=== PATIENT | female | born 1975 | race Hispanic/Latino ===

== ENCOUNTER 2018-04-23 17:50 | Emergency (ER) | payer OTHER, SELFPAY ==
[2018-04-23 17:57] VITALS: BP 137/97; PULSE 107; RESP 18; TEMP 37.1; O2SAT 98
--- NOTE | 2018-04-23 18:05 | ED_ITS ---
HPI - Female Genitourinary <Dana Bravo PA-C - Last Filed: 04/23/18 22:21> General Chief complaint: Urogenital-Female Stated complaint: PRIVATE, DOESNT WANT TO SAY Time Seen by Provider: 04/23/18 18:00 Source: patient Mode of arrival: ambulatory Limitations: no limitations History of Present Illness HPI Narrative: This generally healthy 42-year-old female is concerned about possible chlamydia exposure from a female partner via oral sex or use of sex toys though she states they were jainism about cleaning these. She states that she was last with this partner 9 days ago, and a few days ago she reported that she tested positive for gonorrhea. She states that she has had some slight chills and sweats during the day for the last 24 hr. She states that she has had fever up to 100 at home. She has had night sweats with no fever for 3 days. She has had feeling of swollen neck glands and somewhat sore throat with patchy, funny looking redness and canker sores for 3 days. She states swollen glands are more noticeable on the right. She describes a little bit of mild headache or sinus pressure, nothing like her previous migraines. No earache. No cough, and does not feel like she has a upper respiratory infection or ?typical? sore throat. She denies any recent travel. She denies any specific exposures aside from this. She states that she does not have any new vaginal discharge, maybe a little bit thicker for the last couple of days but not unusual for her in mid cycle. She denies any odor, itching, urinary symptoms, new pelvic or abdominal pain. She states that she has had BV before, not concerned about this or trich from this partner. She is most concerned about GC testing. She is otherwise monogamous with her . She states that she thinks she could have a virus as well but is really concerned about this exposure. Related Data Allergies Allergy/AdvReac Type Severity Reaction Status Date / Time carbamazepine [From TEGRETOL] Allergy Severe ERIN Unverified 02/27/18 12:36 MELLO'S SYNDROME Review of Systems <Dana Bravo PA-C - Last Filed: 04/23/18 22:21> Review of Systems All systems reviewed & are unremarkable except as noted in HPI and below Exam <Dana Bravo PA-C - Last Filed: 04/23/18 22:21> Narrative Exam Narrative: GENERAL APPEARANCE: Patient sitting comfortably, in no distress. HEAD: No sinus TTP. EYES: PERRL, EOMI. EARS: Normal auditory canals, TMS intact with normal light reflexes. ORAL CAVITY: Normal oropharynx. THROAT: Moderate patchy erythema without any exudate, no vesicles or lesions NECK/THYROID: Neck supple, full range of motion, few small anterior cervical nodes, no posterior or submandibular nodes LUNGS: Clear to auscultation bilaterally, clear to percussion, no cough on exam. HEART: RRR without murmur, nl S1, S2, no S3 or S4. ABDOMEN: Soft, nontender, nondistended EXTREMITIES: No cyanosis or edema Initial Vital Signs Initial Vital Signs: Vital Signs Temperature 98.8 F 04/23/18 17:57 Pulse Rate 107 H 04/23/18 17:57 Respiratory Rate 18 04/23/18 17:57 Blood Pressure 137/97 H 04/23/18 17:57 Pulse Oximetry 98 04/23/18 17:57 <Angel Swanson DO - Last Filed: 04/24/18 02:34> Initial Vital Signs Initial Vital Signs: Vital Signs Temperature 98.8 F 04/23/18 17:57 Pulse Rate 107 H 04/23/18 17:57 Respiratory Rate 18 04/23/18 17:57 Blood Pressure 137/97 H 04/23/18 17:57 Pulse Oximetry 98 04/23/18 17:57 Course <Dana Bravo PA-C - Last Filed: 04/23/18 22:21> Hospital Course: Patient's urine study for gonorrhea/chlamydia and rapid strep were negative. A throat culture including gonorrhea were ordered. Patient's partner did not test positive for Chlamydia. She felt more comfortable being treated for gonorrhea exposure versus waiting for additional test results so was given an injection of ceftriaxone this evening and our plan is to call her if any positive findings on the culture from lab. Orders Ordered: ED Orders 04/23/18 18:30 Urinalysis Sreen (Dip Only) Stat Urine Chlamydia Gonorrhea PCR Stat 04/23/18 19:53 GC Screen Stat Strep Grp A by PCR Rapid Stat Throat Culture Stat Discontinued Medications Ceftriaxone Sodium (Rocephin) 250 mg IM NOW ONE Stop: 04/23/18 21:03 Last Admin: 04/23/18 21:16 Dose: 250 mg Vital Signs - 8 hr 04/23/18 20:53 Pulse Rate 102 H Blood Pressure [Right Arm] 126/79 H Pulse Oximetry 99 <Angel Swanson DO - Last Filed: 04/24/18 02:34> Orders Ordered: ED Orders 04/23/18 18:30 Urinalysis Sreen (Dip Only) Stat Urine Chlamydia Gonorrhea PCR Stat 04/23/18 19:53 GC Screen Stat Strep Grp A by PCR Rapid Stat Throat Culture Stat Discontinued Medications Ceftriaxone Sodium (Rocephin) 250 mg IM NOW ONE Stop: 04/23/18 21:03 Last Admin: 04/23/18 21:16 Dose: 250 mg Vital Signs - 8 hr 04/23/18 20:53 Pulse Rate 102 H Blood Pressure [Right Arm] 126/79 H Pulse Oximetry 99 MDM - Female Genitourinary <Dana Bravo PA-C - Last Filed: 04/23/18 22:21> Lab Data Lab Results 04/23/18 04/23/18 04/23/18 Range/Units 18:30 18:30 19:53 Urine Color Yellow Urine Appearance Clear Urine pH 5.5 (4.5-8.0) Ur Specific [place] 1.025 (1.000-1.035) Urine Protein Negative (Negative) Urine Glucose (UA) Negative (Normal) g/dL Urine Ketones Negative (NEGATIVE) Urine Occult Blood Trace-intact (Negative) Urine Nitrate Negative (Negative) Urine Bilirubin Negative (NEGATIVE) Urine Urobilinogen 0.2 (0.2) E.U./dL Ur Leukocyte Esterase Negative (NEGATIVE) Ur Chlamydia DNA (PCR) Not detected Group A Strep (PCR) Negative N gonorrhoeae DNA (PCR) Not detected <Angel Swanson DO - Last Filed: 04/24/18 02:34> Lab Data Lab Results 04/23/18 04/23/18 04/23/18 Range/Units 18:30 18:30 19:53 Urine Color Yellow Urine Appearance Clear Urine pH 5.5 (4.5-8.0) Ur Specific [place] 1.025 (1.000-1.035) Urine Protein Negative (Negative) Urine Glucose (UA) Negative (Normal) g/dL Urine Ketones Negative (NEGATIVE) Urine Occult Blood Trace-intact (Negative) Urine Nitrate Negative (Negative) Urine Bilirubin Negative (NEGATIVE) Urine Urobilinogen 0.2 (0.2) E.U./dL Ur Leukocyte Esterase Negative (NEGATIVE) Ur Chlamydia DNA (PCR) Not detected Group A Strep (PCR) Negative N gonorrhoeae DNA (PCR) Not detected Discharge Plan Departure Patient Disposition: Home, Self-Care Clinical Impression: Exposure to gonorrhea Discharge Date/Time: 04/23/18 21:47 Interventions: ED Discharge Assessment Last Done: 04/23/18 21:46 Instructions: DI for Gonorrhea Activity Restrictions/Additional Instructions: Your urine gonorrhea and chlamydia test were negative today however we have treated you for gonorrhea based on your known exposure. Your throat culture is pending and we will call you if any positive results or treatment plans need to be changed. Your throat on exam today did not look at all typical for a gonorrheal infection. Your strep test was negative as well. Please return if you have any acutely worsening symptoms, and you should also follow up with your PCP if you continue to notice night sweats, swollen glands, or other new symptoms. <Angel Swanson, DO - Last Filed: 04/24/18 02:34> Cosign ED Attending Erma Attestation: I was immediately available in the department for consultation. Documentation has been reviewed. I agree with assessment and plan.
[2018-04-23 19:18] LABS: Appearance Urine UA CLEAR; Bilirubin Urine UA NEGATIVE (NEGATIVE); Color Urine UA YELLOW; Glucose Urine UA NEGATIVE (Normal); Ketones Urine UA NEGATIVE (NEGATIVE); Leukocyte Esterase Urine UA NEGATIVE (NEGATIVE); Nitrite Urine UA Negative (Negative); Occult Blood Urine UA TRACE-INTACT (Negative); Protein Urine UA NEGATIVE (Negative); Specific Gravity Urine UA 1.025 (1.000-1.035); Urobilinogen Urine UA 0.2 E.U./dL (0.2); pH Urine UA 5.5 (4.5-8.0)
--- NOTE | 2018-04-23 19:36 | PC.NURSE ---
pt c/o throat pain. denies genitourinary concerns
[2018-04-23 20:35] LABS: Strep Grp A by PCR Rapid Negative
[2018-04-23 20:40] LABS: Urine N gonorrhoeae NOT DETECTED
[2018-04-23 20:43] LABS: Urine Chlamydia NOT DETECTED
[2018-04-23 20:53] VITALS: BP 126/79; PULSE 102; O2SAT 99
[2018-04-23] MEDS: cefTRIAXone 500 MG VIAL 250 MG IM (21:16)
== END 2018-04-23 21:47 | disposition home or self-care (01) ==
PROVIDERS: Emergency Provider Internal Medicine
DX: Z20.2 Contact with and (suspected) exposure to infections with a predominantly sexual mode of transmission (principal)
CPT/HCPCS: 81003; 87070; 87081; 87491; 87591; 87651; 96372; 99282; 99283; J0696

== ENCOUNTER 2019-04-06 16:48 | Emergency (ER) | payer OTHER, SELFPAY ==
[2019-04-06 17:05] VITALS: BMI 25.4
[2019-04-06 17:41] VITALS: BP 119/75; PULSE 76; RESP 16; TEMP 36.8; O2SAT 100
--- NOTE | 2019-04-06 17:42 | DI.US.S_ITS ---
PROCEDURE: US PELVIC COMPLETE INDICATIONS: RLQ PAIN TECHNIQUE: Real-time scanning was performed of the pelvic organs, with image documentation. Additional endovaginal scanning was necessary due to incomplete visualization of the adnexal and endometrial structures by transabdominal scanning. COMPARISON: None. FINDINGS: Transabdominal scanning: Limited scanning through the kidneys shows no hydronephrosis. No pathologic free abdominal or pelvic fluid. The appendix is not identified and cannot be evaluated. Endovaginal scanning: Uterus: Uterus is normal in size at 9.8 x 3.3 x 4.4 cm. The endometrium measures 3.6 mm in combined thickness. There is a 1.7 x 1.7 cm anterior intramural fibroid. Ovaries: Right adnexa measures 2.8 x 1.5 x 1.1 cm. Right adnexa sonographically normal. Left adnexa measures 3.2 x 1.7 x 1.6 cm. There is a 1 cm optional follicle in the left adnexa. IMPRESSION: 1. Small uterine fibroid. 2. Small left adnexal cyst. 3. Right adnexa sonographically normal. Dictated by: Harleen Adamson MD, PhD on 04/06/2019 at 19:02 Approved by: Harleen Adamson MD, PhD on 04/06/2019 at 19:04
[2019-04-06 17:46] LABS: Add Manual Diff / Slide Review NO; Basophils Absolute Auto 100 /uL (0-100); Basophils Percent Auto 1.1 % (0-2); Eosinophils Absolute Auto 200 /uL (0-450); Eosinophils Percent Auto 4.9 % (2-4); Hematocrit 41.1 % (36-46); Hemoglobin 13.8 g/dL (12.0-16.0); Lymphocytes Absolute Auto 2400 /uL (1100-4500); Mean Corpuscular HGB Conc 33.5 % (30-36); Mean Corpuscular Hemoglobin 30.7 PG (26-34); Mean Corpuscular Volume 91.4 fL (80-100); Monocytes Absolute Auto 400 /uL (0-900); Monocytes Percent Auto 7.9 % (3-14); Neutrophils Absolute Auto 1700 /uL (1500-7000); Neutrophils Percent Auto 36.1 % (50-75); Platelet Count 237 X10^3/uL (150-400); Red Cell Distribution Width 13.1 % (11.6-14.8); White Blood Cell Count 4.8 X10^3/uL (4.5-11.0)
--- NOTE | 2019-04-06 17:54 | PC.NURSE ---
Patient complains of lower right abdominal sharp pain with bloating for the last three days that started to radiate towards the back today. Pt does not have a period d/t daily control, however, some spotting occurs at times, but she reports it lasting longer this time. Pt reports some nausea, worsens when walking or moving and better with heat, has had a BM this morning with some relief to the pain. Pt has hx of UTI's PID when she was 20 three c-sections, allergies to Tegretol and morphine. Pt is resting in room.
[2019-04-06 17:56] LABS: Alanine Aminotransferase 29 IU/L (9-52); Albumin 4.5 g/dL (3.5-5.0); Albumin Globulin Ratio 1.3 (1.0-2.8); Alkaline Phosphatase 55 U/L (38-126); Amylase 96 U/L (30-110); Aspartate Aminotransferase 29 IU/L (14-36); BUN Creatinine Ratio 21.4 (6-22); Bilirubin Total 0.3 mg/dL (0.2-1.3); Blood Urea Nitrogen 15 mg/dL (7-17); Carbon Dioxide 24 mmol/L (22-32); Chloride 105 mmol/L (98-107); Estimated Glomerular Filt Rate > 60.0 mL/min (>60); Globulin 3.5 g/dL (1.7-4.1); Glucose 87 mg/dL (70-100); HEMOLYSIS < 15 (0-50); Lipase 487 U/L (23-300); Potassium 3.9 mmol/L (3.4-5.1); Sodium 138 mmol/L (137-145)
--- NOTE | 2019-04-06 19:03 | DI.CT.S_ITS ---
PROCEDURE: CT ABDOMEN PELVIS W CON INDICATIONS: rlq pain, elevated lipase TECHNIQUE: After the administration of intravenous contrast, 5 mm thick sections acquired from the diaphragm to the symphysis. 5 mm coronal and sagittal reformats were acquired. For radiation dose reduction, the following was used: automated exposure control, adjustment of mA and/or kV according to patient size. COMPARISON: None. FINDINGS: Image quality: Excellent. ABDOMEN: Lung bases: Lung bases are clear. Heart size is normal. Bilateral breast implants partially visualized. Solid organs: Liver is normal in size and enhancement. Gallbladder is contracted. Biliary system is non dilated. Pancreas enhances normally. Spleen is normal in size and enhancement. No adrenal nodules. Kidneys demonstrate normal size and enhancement, without hydronephrosis. Peritoneum and bowel: Bowel loops demonstrate normal wall thickness and caliber. No free fluid or air. The appendix is normal. Nodes and vessels: No retroperitoneal or mesenteric adenopathy by size criteria. Aorta and inferior vena cava are normal in size. Miscellaneous: No ventral hernias. PELVIS: Genitourinary: Bladder wall thickness is normal. Miscellaneous: No inguinal hernias or adenopathy. Bones: No suspicious bony lesions. No vertebral body compression fractures. IMPRESSION: 1. No evidence of appendicitis. 2. No free fluid or free air. 3. No dilated loops of bowel. Dictated by: Harleen Adamson MD, PhD on 04/06/2019 at 19:42 Approved by: Harleen Adamson MD, PhD on 04/06/2019 at 19:47
[2019-04-06 19:48] VITALS: BP 118/71; PULSE 80; RESP 17; O2SAT 100
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
[2019-04-06] MEDS: KETOROLAC 60 MG/2 ML VIAL 30 MG IV (20:45)
[2019-04-06 20:57] VITALS: BP 127/80; PULSE 72; RESP 18; O2SAT 100
== END 2019-04-06 21:26 | disposition home or self-care (01) ==
PROVIDERS: Emergency Provider Nurse Practitioner Family
DX: D25.1 Intramural leiomyoma of uterus (principal); R10.31 Right lower quadrant pain
CPT/HCPCS: 36591; 74177; 76830; 76856; 80053; 81003; 81025; 82150; 83690; 85025; 96374; 99283; 99284; J1885; Q9967

== ENCOUNTER 2020-12-14 13:26 | Emergency (ER) | payer OTHER, SELFPAY ==
[2020-12-14] VITALS (7 sets, daily range): BP systolic 106–123; BP diastolic 66–78; PULSE 75–94; RESP 18; TEMP 36.9; O2SAT 96–100; BMI 29.2
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
[2020-12-14 13:59] LABS: Bacteria Urine None Seen
--- NOTE | 2020-12-14 14:10 | DI.US.S_ITS ---
PROCEDURE: US PELVIC COMPLETE INDICATIONS: RIGHT PELVIC PAIN. HISTORY OF CYSTS. TECHNIQUE: Real-time scanning was performed of the pelvic organs, with image documentation. Additional endovaginal scanning was necessary due to incomplete visualization of the adnexal and endometrial structures by transabdominal scanning. COMPARISON: [facility], US, US PELVIC COMPLETE, 04/06/2019, 18:00. FINDINGS: Uterus: Uterus is at the upper limits of normal for size at 10.1 x 4 x 3.8 cm. The endometrium measures 6 mm in combined thickness. Incidental note is made of nabothian cysts. Ovaries: The right ovary measures 3.3 x 2.2 x 1.9 cm. The left ovary measures 2.6 x 1.6 x 1.6 cm, and demonstrates a complex cyst with increased vascularity that measures up to 2 cm. The ovaries otherwise have a normal sonographic appearance. No adnexal masses are seen. Other: No pathologic free abdominal or pelvic fluid. IMPRESSION: Complex cyst of the left ovary that measures up to 2 cm, which most likely represents a hemorrhagic cyst. At clinical discretion, a followup pelvic ultrasound could be considered in 6 weeks to assure resolution/ improvement. Dictated by: Elvis Martins M.D. on 12/14/2020 at 14:08 Approved by: Elvis Martins M.D. on 12/14/2020 at 14:09
[2020-12-14 14:11] LABS: Culture Indicated Urine Cult Not Indicated; RBC Urine 1-5/HPF (0-5/HPF); Squamous Epithelial Cell Urine 1-5 /HPF (0-5/HPF); WBC Urine 0-1/HPF (0-5/HPF)
--- NOTE | 2020-12-14 14:11 | DI.CT.S_ITS ---
PROCEDURE: CT ABDOMEN PELVIS W CON INDICATIONS: rlq pain TECHNIQUE: After the administration of intravenous contrast, 5 mm thick sections acquired from the diaphragm to the symphysis. 5 mm coronal and sagittal reformats were acquired. For radiation dose reduction, the following was used: automated exposure control, adjustment of mA and/or kV according to patient size. COMPARISON: [facility], , US PELVIC COMPLETE, 12/14/2020, 14:32. [facility], US, US PELVIC COMPLETE, 04/06/2019, 18:00. [facility], CT, CT ABDOMEN PELVIS W CON, 04/06/2019, 19:12. FINDINGS: Image quality: Excellent. ABDOMEN: Lung bases: Lung bases are clear. Heart size is normal. Solid organs: Liver is normal in size and enhancement. Gallbladder is normal. Biliary system is non dilated. Pancreas enhances normally. Spleen is normal in size and enhancement. No adrenal nodules. Kidneys demonstrate normal size and enhancement, without hydronephrosis. There is a 9 mm low-density nodule in the left kidney, most likely a renal cyst. Peritoneum and bowel: Appendix is normal in caliber measuring 6 mm in diameter. Bowel loops demonstrate normal wall thickness and caliber. No free fluid or air. Nodes and vessels: There are prominent mesenteric lymph nodes in the right lower quadrant, measuring up to 7 mm. No retroperitoneal or mesenteric adenopathy by size criteria. Aorta and inferior vena cava are normal in size. Miscellaneous: No ventral hernias. PELVIS: Genitourinary: Bladder wall thickness is normal. There is a 1.5 cm right ovarian cyst with peripheral enhancement, most likely a corpus luteum. Left ovary is not well seen. Uterus is unremarkable. No pathological free-fluid in pelvis. Miscellaneous: No inguinal hernias or adenopathy. Bones: No suspicious bony lesions. No vertebral body compression fractures. IMPRESSION: 1. Normal appendix. 2. Mildly prominent mesenteric lymph node in the right lower quadrant, consistent with nonspecific mesenteric adenitis. 3. A 1.5 cm cyst in the right ovary, most likely a corpus luteum. Left ovary is not well seen. No pathological free-fluid in pelvis. Dictated by: Shad Schmidt M.D. on 12/14/2020 at 15:42 Approved by: Shad Schmidt M.D. on 12/14/2020 at 16:03
[2020-12-14] MEDS: KETOROLAC 60 MG/2 ML VIAL 30 MG IV (14:29)
[2020-12-14 14:46] LABS: Add Manual Diff / Slide Review NO; Basophils Absolute Auto 100 /uL (0-100); Basophils Percent Auto 1.2 % (0-2); Eosinophils Absolute Auto 200 /uL (0-450); Eosinophils Percent Auto 3.1 % (2-4); Hematocrit 40.7 % (36-46); Hemoglobin 13.7 g/dL (12.0-16.0); Lymphocytes Absolute Auto 1800 /uL (1100-4500); Lymphocytes Percent Auto 33.9 % (25-40); Mean Corpuscular HGB Conc 33.6 % (30-36); Mean Corpuscular Hemoglobin 29.8 PG (26-34); Mean Corpuscular Volume 88.8 fL (80-100); Monocytes Absolute Auto 300 /uL (0-900); Monocytes Percent Auto 6.2 % (3-14); Neutrophils Absolute Auto 2900 /uL (1500-7000); Neutrophils Percent Auto 55.6 % (50-75); Platelet Count 222 X10^3/uL (150-400); Red Blood Cell Count 4.59 X10^6/uL (4.0-5.2); Red Cell Distribution Width 12.7 % (11.6-14.8); White Blood Cell Count 5.2 X10^3/uL (4.5-11.0)
[2020-12-14 15:03] LABS: Alanine Aminotransferase 24 IU/L (<35); Albumin 4.3 g/dL (3.5-5.0); Albumin Globulin Ratio 1.3 (1.0-2.8); Alkaline Phosphatase 52 U/L (38-126); Aspartate Aminotransferase 29 IU/L (14-36); BUN Creatinine Ratio 19.4 (6-22); Bilirubin Total 0.5 mg/dL (0.2-1.3); Blood Urea Nitrogen 14 mg/dL (7-17); Calcium 9.1 mg/dL (8.4-10.2); Carbon Dioxide 28 mmol/L (22-32); Chloride 101 mmol/L (98-107); Estimated Glomerular Filt Rate > 60.0 mL/min (>60); Globulin 3.3 g/dL (1.7-4.1); Glucose 98 mg/dL (70-100); HEMOLYSIS < 15 (0-50); Lipase 250 U/L (23-300); Potassium 3.8 mmol/L (3.4-5.1); Sodium 135 mmol/L (137-145); Total Protein 7.6 g/dL (6.3-8.2)
[2020-12-14] MEDS: HYDROMORPHONE 0.5 MG INJ IV (15:30)
== END 2020-12-14 16:53 | disposition home or self-care (01) ==
PROVIDERS: Emergency Provider Emergency Medicine
DX: N83.201 Unspecified ovarian cyst, right side (principal); R10.2 Pelvic and perineal pain; Z87.42 Personal history of other diseases of the female genital tract
CPT/HCPCS: 36415; 74177; 76830; 76856; 80053; 81003; 81015; 81025; 83690; 85025; 87070; 87077; 87147; 87205; 87210; 87491; 87563; 87591; 96374; 96375; 99284; J1170; J1885; Q9967

== ENCOUNTER → 2020-12-21 12:12 | Outpatient (CLI) | payer OTHER, SELFPAY | PROVIDERS: PCP Registered Nurse; Visit Provider Obstetrics & Gynecology | DX: N76.0 Acute vaginitis (principal); Z86.19 Personal history of other infectious and parasitic diseases | CPT/HCPCS: 87070; 87205 ==

== ENCOUNTER → 2021-05-03 15:27 | Outpatient (CLI) | payer OTHER, SELFPAY | PROVIDERS: PCP Registered Nurse; Visit Provider Obstetrics & Gynecology | DX: R31.9 Hematuria, unspecified (principal); R39.9 Unspecified symptoms and signs involving the genitourinary system | CPT/HCPCS: 87086 ==

== ENCOUNTER → 2021-05-04 14:25 | Outpatient (CLI) | payer OTHER, SELFPAY ==
--- NOTE | 2021-05-04 14:26 | DI.US.S_ITS ---
PROCEDURE: US PELVIC COMPLETE INDICATIONS: PELVIC PAIN AND PAIN AT VAGINAL CUFF. POSTHYSTERECTOMY. TECHNIQUE: Real-time scanning was performed of the pelvic organs, with image documentation. Additional endovaginal scanning was necessary due to incomplete visualization of the adnexal and endometrial structures by transabdominal scanning. COMPARISON: [facility], PELVIC COMPLETE, 12/14/2020, 14:32. [facility], PELVIC COMPLETE, 04/06/2019, 18:00. FINDINGS: Uterus: Uterus is surgically absent Ovaries: Ovaries could not be located. The may be surgically absent. Other: No pathologic free abdominal or pelvic fluid. IMPRESSION: Nonvisualization of the ovaries bilaterally, possibly due to prior oophorectomy. Prior hysterectomy has been performed according to the patient. Depending on the clinical status follow-up by pelvic MRI may be warranted for further assessment. Prior surgical history would be valuable to determine whether oophorectomy has been performed. Dictated by: Itz De La Torre M.D. on 05/04/2021 at 15:21 Approved by: Itz De La Torre M.D. on 05/04/2021 at 15:22
== END ==
PROVIDERS: PCP Registered Nurse; Referring Provider Obstetrics & Gynecology; Visit Provider Obstetrics & Gynecology
DX: R10.2 Pelvic and perineal pain (principal); R10.31 Right lower quadrant pain; Z90.710 Acquired absence of both cervix and uterus
CPT/HCPCS: 76830; 76856

== ENCOUNTER → 2021-05-18 14:00 | Outpatient (CLI) | payer OTHER, SELFPAY ==
--- NOTE | 2021-05-18 14:02 | DI.MRI.S_ITS ---
PROCEDURE: MR PELVIS WO/W CON INDICATIONS: pelvic pain TECHNIQUE: Coronal HASTE, sagittal breath-hold T2 FSE; axial T1 FSE with and without fat saturation through the pelvis. Optional long- and short-axis uterine nonbreath-hold T2 FSE through the uterus. Sagittal or axial dynamic VIBE during administration of contrast. Post-contrast axial or coronal VIBE/2-D FLASH with fat saturation from the iliac crests to the symphysis. Optional diffusion weighted imaging and ADC may be performed. COMPARISON: [facility], US, US PELVIC COMPLETE, 05/04/2021, 14:44. [facility], CT, CT ABDOMEN PELVIS W CON, 12/14/2020, 15:16. [facility], US, US PELVIC COMPLETE, 12/14/2020, 14:32. [facility], CT, CT ABDOMEN PELVIS W CON, 04/06/2019, 19:12. FINDINGS: Image quality: Excellent. Uterus: Apparent prior hysterectomy. The uterus appeared present at the midline, anteverted, 12/14/20. Adnexa: Both ovaries are normal in size, without suspicious cystic or solid lesions. No cystic or solid adnexal mass is found. Urinary system: Bladder wall is normal in thickness. Distal ureters are non distended. Urethra appears normal in morphology. Nodes and vessels: No pelvic or inguinal adenopathy by size criteria. Iliac vessels are normal in size. Bowel and peritoneum: No pathologic free pelvic fluid. Inferior colon and small bowel loops are normal in caliber. Soft tissues: No inguinal hernias. No findings of pelvic floor incompetence in the absence of provocation. Bones: Marrow demonstrates normal overall signal. IMPRESSION: A source of persistent pelvic pain is not found. No adnexal cystic or solid mass seen. There appears to have been prior hysterectomy. No operative complication is found. No adenopathy is seen and no acute bone or soft tissue lesion is identified. Dictated by: Itz De La Torre M.D. on 05/18/2021 at 16:39 Approved by: Itz De La Torre M.D. on 05/18/2021 at 16:44
== END ==
PROVIDERS: PCP Registered Nurse; Referring Provider Obstetrics & Gynecology; Visit Provider Obstetrics & Gynecology
DX: R10.2 Pelvic and perineal pain (principal); Z90.710 Acquired absence of both cervix and uterus
CPT/HCPCS: 72197; A9579

== ENCOUNTER → 2021-05-27 14:12 | Outpatient (CLI) | payer OTHER, SELFPAY ==
[2021-05-27 15:44] LABS: Add Manual Diff / Slide Review NO; Basophils Absolute Auto 100 /uL (0-100); Basophils Percent Auto 1.2 % (0-2); Eosinophils Absolute Auto 200 /uL (0-450); Eosinophils Percent Auto 2.9 % (2-4); Hematocrit 43.1 % (36-46); Hemoglobin 14.6 g/dL (12.0-16.0); Lymphocytes Absolute Auto 2200 /uL (1100-4500); Lymphocytes Percent Auto 41.1 % (25-40); Mean Corpuscular HGB Conc 33.9 % (30-36); Mean Corpuscular Hemoglobin 30.9 PG (26-34); Mean Corpuscular Volume 91.2 fL (80-100); Monocytes Absolute Auto 300 /uL (0-900); Monocytes Percent Auto 6.1 % (3-14); Neutrophils Absolute Auto 2600 /uL (1500-7000); Neutrophils Percent Auto 48.7 % (50-75); Platelet Count 227 X10^3/uL (150-400); Red Blood Cell Count 4.72 X10^6/uL (4.0-5.2); Red Cell Distribution Width 13.5 % (11.6-14.8); White Blood Cell Count 5.4 X10^3/uL (4.5-11.0)
[2021-05-27 15:51] LABS: Alanine Aminotransferase 19 IU/L (<35); Albumin 4.4 g/dL (3.5-5.0); Albumin Globulin Ratio 1.3 (1.0-2.8); Alkaline Phosphatase 67 U/L (38-126); Aspartate Aminotransferase 29 IU/L (14-36); BUN Creatinine Ratio 19.5 (6-22); Bilirubin Total 0.5 mg/dL (0.2-1.3); Blood Urea Nitrogen 15 mg/dL (7-17); Calcium 9.3 mg/dL (8.4-10.2); Carbon Dioxide 25 mmol/L (22-32); Chloride 105 mmol/L (98-107); Estimated Glomerular Filt Rate > 60.0 mL/min (>60); Globulin 3.5 g/dL (1.7-4.1); Glucose 88 mg/dL (70-100); HEMOLYSIS < 15 (0-50); Potassium 4.3 mmol/L (3.4-5.1); Sodium 138 mmol/L (137-145); Total Protein 7.9 g/dL (6.3-8.2)
[2021-05-27 16:14] LABS: Free T4, Direct Thyroxine 0.88 ng/dL (0.78-2.19)
[2021-05-27 16:28] LABS: Thyroid Stimulating Hormone 2.53 uIU/mL (0.47-4.68)
== END ==
PROVIDERS: Family Provider Registered Nurse; PCP Registered Nurse; Referring Provider Registered Nurse; Visit Provider Registered Nurse
DX: F41.8 Other specified anxiety disorders (principal); R53.83 Other fatigue; R63.5 Abnormal weight gain
CPT/HCPCS: 36415; 80053; 84439; 84443; 85025

== ENCOUNTER → 2022-01-23 16:48 | Outpatient (CLI) | payer OTHER, SELFPAY ==
--- NOTE | 2022-01-23 16:51 | DI.RAD.S_ITS ---
PROCEDURE: XR ANKLE RT MIN 3V INDICATIONS: bilat. ankle pain w/swelling TECHNIQUE: 3 views of the ankle were acquired. COMPARISON: None. FINDINGS: Bones: Lucency at the medial talar dome is suspicious for an osteochondral lesion of uncertain age. Mild spurring or posttraumatic changes at the dorsal talonavicular joint. Mortise joint is normally aligned. No suspicious bony lesions. Soft tissues: No suspicious soft tissue calcification. IMPRESSION: Small lucency at the medial talar dome is suspicious for an age indeterminate osteochondral lesion. MRI could be obtained for further evaluation if indicated clinically. Dictated by: Porfirio Tilley M.D. on 01/23/2022 at 23:07 Approved by: Porfirio Tilley M.D. on 01/23/2022 at 23:08
--- NOTE | 2022-01-23 16:51 | DI.RAD.S_ITS ---
PROCEDURE: XR ANKLE LT MIN 3V INDICATIONS: bilat. ankle pain w/swelling TECHNIQUE: Three views of the ankle were acquired. COMPARISON: None. FINDINGS: Bones: No acute fractures or dislocations. Ankle mortise is normally aligned. No suspicious bony lesions. Small ossification at the dorsal aspect of the talonavicular joint may be secondary to prior trauma or an accessory ossicle. Soft tissues: No suspicious soft tissue calcification. IMPRESSION: No acute osseous abnormality. If the symptoms persist, consider cross sectional imaging such as MRI or CT for further assessment. Dictated by: Porfirio Tilley M.D. on 01/23/2022 at 23:09 Approved by: Porfirio Tilley M.D. on 01/23/2022 at 23:10
== END ==
PROVIDERS: PCP Registered Nurse; Referring Provider Registered Nurse; Visit Provider Registered Nurse
DX: M25.471 Effusion, right ankle (principal); M25.472 Effusion, left ankle
CPT/HCPCS: 73610